=== PATIENT | female | born 1940 | race Caucasian/White ===

== ENCOUNTER → 2017-05-19 | Outpatient (CLI) | payer MEDICARE ==
[~2017-05-19] MED LIST: ALBU8.5H8 INH; ASPI-621 PO; FLUT1DIS3 INH; FURO-93 PO; GUAI600T80 PO; LEVO500T47 PO; LISI5TAB7 PO; NICO-485 TD; POT25TAB PO; PRED10TA PO
== END | disposition home or self-care (01) ==
LOC: CFH 09:39
PROVIDERS: ATTEND Psychiatry & Neurology Neurology
DX: I67.82 Cerebral ischemia (principal); R90.82 White matter disease, unspecified; G31.9 Degenerative disease of nervous system, unspecified; S09.90XA Unspecified injury of head, initial encounter; W18.39XA Other fall on same level, initial encounter; Y93.89 Activity, other specified; Y92.89 Other specified places as the place of occurrence of the external cause; Y99.8 Other external cause status
CPT/HCPCS: 70551